=== PATIENT | male | born 1965 | race Caucasian/White ===

== ENCOUNTER 2021-12-29 18:34 | Emergency (ER) | payer BC, MEDICARE, SELFPAY ==
[2021-12-29] VITALS (18 sets, daily range): BP systolic 99–138; BP diastolic 69–110; PULSE 56–103; RESP 12–27; TEMP 37; O2SAT 95–100
--- NOTE | ~2021-12-29 | XR_ITS ---
EXAMINATION: XR chest 2V Exam Date/Time: 12/29/2021 19:20 CDT HISTORY: dizzy, syncope, AFIB Comparison: None available. RESULT: Lines, tubes, and devices: None. Lungs and pleura: Clear. Cardiomediastinal silhouette: Unremarkable cardiomediastinal silhouette. Other: No acute osseous or upper abdominal finding. IMPRESSION: No acute cardiopulmonary process. Reviewed, dictated and finalized at location K.
--- NOTE | ~2021-12-29 | CT_ITS ---
EXAMINATION: CT brain wo con DATE: 12/29/2021 21:21 INDICATION: syncope, HI . TECHNIQUE: Computed tomography (CT) of the head was performed without intravenous contrast. The mA wa s adjusted according to patient size. Iterative reconstruction technique was employed. The dose-lengt h product was 605.33 mGy-cm. COMPARISON: None FINDINGS: No acute intracranial hemorrhage or extra-axial fluid collection. No hydrocephalus, mass, or herniation. No acute ischemic infarct. Unremarkable dural venous sinus attenuation. No acute osseous abnormality. The aerated spaces are clear. Mild atrophy and chronic white matter change. Bilateral basal ganglia calcifications. Atherosclerotic intracranial calcifications. IMPRESSION: No acute intracranial process. Reviewed, dictated and finalized at location K.
--- NOTE | 2021-12-29 18:35 | ECG_ITS ---
Measurements Intervals [place] Rate: 85 P: OR: 0 QRS: -8 QRSD: 117 T: 7 QT: 404 QTc: 481 Interpretive Statements ATRIAL FIBRILLATION WITH ABERRANT CONDUCTION OR VENTRICULAR PREMATURE COMPLEXES NONSPECIFIC T-WAVE ABNORMALITY ABNORMAL RHYTHM ECG NO PREVIOUS ECG AVAILABLE FOR COMPARISON Electronically Signed On 12-30-2021 13:03:51 CDT by Reginald Olson M.D.
--- NOTE | 2021-12-29 18:42 | ED.GENADULT ---
HPI - General Adult General Chief complaint: Syncope Stated complaint: syncopal episode new a fib Time Seen by Provider: 12/29/21 18:41 Source: patient Mode of arrival: EMS Limitations: no limitations History of Present Illness HPI narrative: Patient is a 56-year-old male who presents the ED via EMS with report of syncope. Patient reports he was having a BM this prior to arrival when he began to feel sweaty, nauseous, dizzy. He states he just felt very unwell at that time. He thought he needed to vomit. He then got up and reportedly had a syncopal episode. His family was in the house and heard the thud. By the time they got upstairs, he was alert and oriented and had fully regained consciousness. Patient does note that the house he was staying in is having issues with air conditioning. He is from [place] and is just here visiting for this weekend. EMS was called. Patient was noted to be in atrial fibrillation by EMS. Patient denies a history of A. fib. He does have a history of hypertension, diabetes, congestive heart failure. He takes bisoprolol-HCTZ, amlodipine, Ozempic, Humalog. Patient does note he is started on Ozempic 2 weeks ago and has been feeling increasingly fatigued since being on the medication. Patient states he currently feels fine. He denies any further dizziness, lightheadedness, nausea. No headache, vision changes, weakness. No chest pain, difficulty breathing, abdominal pain, BLE pain or edema. He does mention having occasional palpitations, but denies any triggering factors. Related Data Allergies Allergy/AdvReac Type Severity Reaction Status Date / Time No Known Allergies Allergy Verified 12/29/21 18:42 Review of Systems Review of Systems: CONSTITUTIONAL: Reports diaphoresis. Denies fever, chills. EYES: Denies visual changes. CARDIOVASCULAR: Denies chest pain, palpitations, or edema. RESPIRATORY: Denies cough or dyspnea. GASTROINTESTINAL: Reports nausea (resolved). Denies abdominal pain, nausea, vomiting, or diarrhea. MUSCULOSKELETAL: Denies back pain, joint pain, or myalgia. NEUROLOGIC: Reports syncope, HI, LOC, dizziness/lightheadedness (resolved). Denies headache, numbness, or weakness. All systems reviewed & are unremarkable except as noted in HPI and below PMFSH Past Medical History Medical History (Updated 12/30/21 @ 02:32 by Rochelle Robledo PA-C) Chronic kidney disease Congestive heart failure Diabetes mellitus Hypertension Surgical History Surgical History (Updated 12/30/21 @ 02:22 by Rochelle Robledo PA-C) No pertinent past surgical history Social History Social History (Updated 12/30/21 @ 02:22 by Rochelle Robledo PA-C) Smoking status: Never smoker Exam Narrative: GENERAL: Well appearing, obese, non-toxic, in no acute distress. HEAD: Normocephalic, atraumatic. EYES: PERRLA/EOMI, conjunctiva clear. THROAT: Pharynx normal. 1 cm linear laceration to left lower lip body, not involving vermilion border. NECK: Supple. No adenopathy, no masses. RESPIRATORY: Airway patent, respirations nonlabored. Clear to auscultation bilaterally, no rales, rhonchi, wheezing appreciated. CARDIOVASCULAR: Regular rhythm, regular rate without murmurs, rubs, or gallops. Peripheral pulses 2+ and equal bilaterally. ABDOMINAL: Soft, nontender, nondistended, no hepatosplenomegaly. Normoactive BS. MUSCULOSKELETAL: Moves all extremities. Strength/ROM intact without gross deformities. No edema. No calf tenderness. SKIN: Warm, dry, normal color. No rashes. NEURO: A&O X3. Speech clear. Cranial nerves II-XII intact. Steady gait. No ataxic movements. Strength 5 out of 5 in upper and lower extremities. PSYCHIATRIC: Appropriate mood and affect. Normal interaction. Course Consultations Consultation #1: Spoke with Dr. Eddie Calvillo, on-call chore worker for patient's chore worker in [place], Dr. Doty. Agreed to place patient on anticoagulation for atrial fibrillation and [id number] score of 3. Advised to
[2021-12-29] MEDS: SODIUM CHLORIDE 0.9% IV 1,000 ML 999 ML IV CONT (18:52)
[2021-12-29 19:03] LABS: Basophils Percent Auto 0.7 % (0.2-1.2); Eosinophils Absolute Auto 0.2 K/mm3 (0-0.3); Eosinophils Percent Auto 3.2 % (0-4.4); Hematocrit 46.6 % (42.0-52.0); Hemoglobin 15.1 g/dL (14.0-18.0); Immature Granulocyte Absolute 0.01 K/mm3 (0.00-0.031); Immature Granulocyte Percent A 0.2 % (0-0.5); Lymphocytes Absolute Auto 2.41 K/mm3 (0.9-3.2); Lymphocytes Percent Auto 44.8 % (18.3-44.2); Mean Corpuscular HGB Conc 32.4 g/dl (32-36); Mean Corpuscular Hemoglobin 28.9 pg (26-34); Mean Corpuscular Volume 89.3 fl (80-100); Mean Platelet Volume 9.9 fl (7.4-10.4); Monocytes Absolute Auto 0.5 K/mm3 (0.1-0.6); Monocytes Percent Auto 8.4 % (2.6-8.5); Neutrophils Absolute Auto 2.3 K/mm3 (1.3-6.7); Neutrophils Percent Auto 42.7 % (45.5-73.1); Platelet Count Result 284 k/mm3 (150-375); Red Blood Count 5.22 M/mm3 (4.6-6.20); Red Cell Distribution Width 13.2 % (11.5-14.5); White Blood Count 5.4 K/mm3 (4.5-10.0)
[2021-12-29 19:14] LABS: Alanine Aminotransferase 18 U/L (6-50); Albumin Level 4.2 g/dL (3.5-5.1); Alkaline Phosphatase 65 U/L (38-126); Anion Gap 7 mmol/L (8-16); Aspartate Amino Transferase 24 U/L (17-59); Bilirubin,Total 0.8 mg/dL (0.2-1.3); Blood Urea Nitrogen 37 mg/dL (9-20); Calcium 8.7 mg/dL (8.4-10.2); Carbon Dioxide 23 mmol/L (22-30); Chloride 108 mmol/L (98-107); Estimated CRCL calculation 49 ml/min; Estimated Glomerular Filt Rate 33; Glucose 131 mg/dL (65-110); INR 1.2; Potassium 4.4 mmol/L (3.4-5.0); Prothrombin Time 14.6 Seconds (11.1-14.7); Sodium 138 mmol/L (137-145)
[2021-12-29 19:15] LABS: Partial Thromboplastin Time 26.8 SECONDS (22.3-36.8)
[2021-12-29 19:26] LABS: NT Pro B Type Natriuretic Pept 636 pg/mL (5-100); Troponin I < 0.012 ng/mL (0.000-0.034)
[2021-12-29 22:23] LABS: Appearance Urine Clear (Clear); Bilirubin Urine Negative (Negative); Blood Urine Negative (Negative); Color Urine Yellow (Yellow); Glucose Urine UA Negative (Negative); Ketones Urine Negative (Negative); Leukocyte Esterase Ur Negative LEU/UL (Negative); Nitrate Urine Negative (Negative); Protein Urine Trace mg/dL (Negative); pH Urine 5.5 (5.0-9.0)
[2021-12-29 22:28] LABS: RBC Urine 0-2 /hpf (0-2); WBC Urine 0-3 /hpf
[2021-12-29 22:31] LABS: Add Urine Microscopic? YES
[2021-12-29 22:38] LABS: Troponin I < 0.012 ng/mL (0.000-0.034)
[2021-12-29] MEDS: APIXABAN 2.5 MG TABLET PO (23:03)
[2021-12-29] MEDS: CEPHALEXIN 500 MG CAPSULE PO (23:03)
== END 2021-12-29 23:34 | disposition home or self-care (01) ==
PROVIDERS: Physician Assistant; Emergency Provider Emergency Medicine
DX: I48.91 Unspecified atrial fibrillation (principal); R55 Syncope and collapse; S01.511A Laceration without foreign body of lip, initial encounter; E11.22 Type 2 diabetes mellitus with diabetic chronic kidney disease; I13.0 Hypertensive heart and chronic kidney disease with heart failure and stage 1 through stage 4 chronic kidney disease, or unspecified chronic kidney disease; N18.9 Chronic kidney disease, unspecified; I50.9 Heart failure, unspecified; Z79.899 Other long term (current) drug therapy; Z79.4 Long term (current) use of insulin; W18.39XA Other fall on same level, initial encounter
CPT/HCPCS: 12011; 36415; 70450; 71046; 80053; 81001; 83880; 84484; 85025; 85610; 85730; 93005; 96361; 96374; 99284; A9270; J0131; J7030